=== PATIENT | male | born 1970 | race African-American/Black ===

== ENCOUNTER 2019-07-27 13:35 | Emergency (ER) | payer BC, OTHER ==
[~2019-07-27] VITALS: Ht 180.3 cm; Wt 105.8 kg
--- NOTE | 2019-07-27 14:20 | NUR ---
FIRST CONTACT WITH PT. PT. HAS C/O BACK PAIN THAT BEGAN THIS MORNING. PT. DRIVES A TRUCK FOR A LIVING. PT. BENT OVER AND IS HAVING DIFFICULTY WALKING AND MOVING. DENIES ANY OTHER SX. PT'S AOX4. RESPS EVEN AND UNLABORED. BP/SPO2 MONITORS IN PLACE. CALL LIGHT WITHIN REACH.
--- NOTE | 2019-07-27 14:25 | NUR ---
edmd at bedside to evaluate at this time.
[2019-07-27] MEDS ORDERED: METHOCARBAMOL 750 MG TABLET PO ONE (14:30)
[2019-07-27] MEDS ORDERED: KETOROLAC 30 MG/1 ML IM ONE (14:30)
[2019-07-27] MEDS ORDERED: HYDROcodone/APAP 5/325 TABLET PO ONE (14:30)
[2019-07-27] MEDS ORDERED: KETOROLAC 30 MG/1 ML ONE (14:37)
[2019-07-27] MEDS ORDERED: METHOCARBAMOL 750 MG TABLET ONE (14:37)
[2019-07-27] MEDS ORDERED: HYDROcodone/APAP 5/325 TABLET ONE (14:38)
[2019-07-27 14:43] VITALS: BP 136/71
--- NOTE | 2019-07-27 14:45 | NUR ---
PT MEDICATED PER EMAR. PT TOLERATED WELL. PT'S AOX4. RESPS EVEN AND UNLABORED. PT DENIES ANY NEEDS OR CONCERNS AT THIS TIME.
--- NOTE | 2019-07-27 15:24 | NUR ---
PT STATES"I FEEL BETTER. I WANNA GO." EDMD NOTIFIED.
--- NOTE | 2019-07-27 15:54 | NUR ---
Patient given discharge instructions and they have confirmed that they understand the instructions. Patient ambulatory with steady gait. TAXI VOUCHER GIVEN AT MD.
== END 2019-07-27 15:55 | disposition home or self-care (01) ==
LOC: ED 14:59
DX: M54.5 Low back pain (principal)
CPT/HCPCS: 96372; 99284; J1885; J7512

== ENCOUNTER 2019-09-30 07:43 | Emergency (ER) | payer MEDICAID ==
[~2019-09-30] VITALS: Ht 180.3 cm; Wt 104.7 kg
[2019-09-30 07:48] VITALS: BP 129/85
--- NOTE | 2019-09-30 08:15 | NUR ---
first contact with pt. pt stated "I have a sore & it's swollen down there", c/o left penile pain since this AM, denies painful urination or discharge, hx gonorrhea or chlamydia & syphillis? pt's aox4. resps even and unlabored.
[2019-09-30] MEDS ORDERED: CEFTRIAXONE 250 MG ONE (08:24)
[2019-09-30] MEDS ORDERED: AZITHROMYCIN 250 MG TABLET ONE (08:24)
[2019-09-30] MEDS ORDERED: AZITHROMYCIN 500 MG TABLET PO ONE (08:30)
[2019-09-30] MEDS ORDERED: CEFTRIAXONE 250 MG IM ONE (08:30)
[2019-09-30] MEDS ORDERED: BICILLIN-LA 2,400,000 UNITS/4 ML IM ONE (08:30)
--- NOTE | 2019-09-30 08:37 | NUR ---
PT MEDICATED PER EMAR. PT TOLERATED WELL.
[2019-09-30 08:38] LABS: BASOPHILS # (AUTO) 0.03 x10^3/uL (0-0.1); BASOPHILS % (AUTO) 0 % (0-1); EOSINOPHILS # (AUTO) 0.06 x10^3/uL (0-0.4); EOSINOPHILS % (AUTO) 1 % (1-7); LYMPHOCYTES # (AUTO) 0.97 x10^3/uL (1-3.4); LYMPHOCYTES % (AUTO) 13 % (22-44); MD NO; MEAN CORPUSCULAR HEMOGLOBIN 27.6 pg (27.5-34.5); MEAN CORPUSCULAR HGB CONC 31.4 g/dL (33.2-36.2); MEAN CORPUSCULAR VOLUME 87.9 fL (81-97); MEAN PLATELET VOLUME 8.7 fL (7.4-10.4); MONOCYTES # (AUTO) 0.45 x10^3/uL (0.2-0.8); MONOCYTES % (AUTO) 6 % (2-9); NEUTROPHILS # (AUTO) 6.09 x10^3/uL (1.8-6.8); NEUTROPHILS % (AUTO) 80 % (42-75); PLATELET COUNT 274 x10^3/uL (130-400); RED BLOOD COUNT 4.85 x10^6/uL (4.38-5.82); RED CELL DISTRIBUTION WIDTH 13.2 % (9.4-14.8)
[2019-09-30 08:48] LABS: ANION GAP 4 mmol/L (5-15); CALCIUM 8.9 mg/dL (8.5-10.1); CHLORIDE 105 mmol/L (98-107); CREATININE 1.33 mg/dL (0.7-1.3)
--- NOTE | 2019-09-30 09:16 | NUR ---
Patient given discharge instructions and they have confirmed that they understand the instructions. Patient ambulatory with steady gait.
== END 2019-09-30 09:17 | disposition home or self-care (01) ==
LOC: ED 08:52
DX: A51.0 Primary genital syphilis (principal)
CPT/HCPCS: 36415; 80048; 82040; 85025; 86592; 96372; 99284; J0561; J0696